=== PATIENT | male | born 2000 | race Caucasian/White ===

== ENCOUNTER 2023-06-30 23:29 | Emergency (ER) | payer OTHER ==
[~2023-06-30] VITALS: Ht 182.9 cm; Wt 113.6 kg
[2023-06-30 23:36] VITALS: BP 148/83; PULSE 134; TEMP 97.9
== END 2023-07-01 00:36 | disposition home or self-care (01) ==
LOC: COL.ER 23:29
DX: S61.412A Laceration without foreign body of left hand, initial encounter (principal); W01.118A Fall on same level from slipping, tripping and stumbling with subsequent striking against other sharp object, initial encounter